=== PATIENT | male | born 1975 | race Caucasian/White ===

== ENCOUNTER 2016-07-05 06:53 | Day surgery (SDC) | payer OTHER ==
[~2016-07-05] VITALS: Ht 175.3 cm; Wt 138.2 kg
[2016-07-05] VITALS (12 sets, daily range): BP systolic 108–144; BP diastolic 52–71; PULSE 76–105; RESP 15–26; Ht 175.3 cm; Wt 138.2 kg
--- NOTE | 2016-07-05 06:47 | HPN ---
Date/Time of Note Date/Time of Note DATE: 07/05/16 TIME: 06:47 Interval H&P Admission Note Pt. seen H&P reviewed: No system changes LAWRENCE PATTERSON MD Jul 05, 2016 06:47
[~2016-07-05 06:53] MED LIST: CEFAZOLIN 2 GM/50 ML (PMX) 50 ML IVPB ONE; DEXAMETHASONE 2 MG TAB PO ONE; GABAPENTIN 300 MG CAP PO ONE; traMADol 50 MG TAB PO ONE
[2016-07-05] MEDS ORDERED: KETOROLAC 30 MG INJ ONE (07:00)
[2016-07-05] MEDS ORDERED: TRAM-40 PO (08:14)
[2016-07-05] MEDS ORDERED: SUCCINYLCHOLINE CHLORIDE 100 MG/5 ML SYG IV ONE (09:02)
[2016-07-05] MEDS ORDERED: PROPOFOL 20 ML ONE ×2 (09:02→09:40)
[2016-07-05] MEDS ORDERED: BUPIVACAINE 0.5% (SDV) 30 ML INJ ONE (09:06)
[2016-07-05] MEDS ORDERED: PHENYLephrine (100 MCG/ML) 5ML SYG ONE (09:07)
[2016-07-05] MEDS ORDERED: BUPIVACAINE 0.5%/EPI (SDV) 30 ML INJ ONE (09:09)
[2016-07-05] MEDS ORDERED: CEFAZOLIN 1 GM INJ ONE (10:15)
[2016-07-05] MEDS ORDERED: DEXAMETHASONE 4 MG/ML 1 ML INJ ONE ×2 (10:19→10:22)
[2016-07-05] MEDS ORDERED: ONDANSETRON 4 MG INJ ONE (10:19)
[2016-07-05] MEDS ORDERED: FAMOTIDINE 20 MG INJ ONE (10:19)
[2016-07-05] MEDS ORDERED: ACETAMINOPHEN 1000MG/100ML IV 100 ML ONE (10:19)
--- NOTE | 2016-07-05 10:49 | PDOCDIS ---
Discharge Instructions DIAGNOSIS Discharge Diagnosis: Medial meniscus tear CONDITION Patient Condition: Good HOME CARE INSTRUCTIONS: Diet Instructions: Regular ACTIVITY: Activity Restrictions: Slowly Increase Activity Keep Limb Elevated Bathing Restrictions: Shower FOLLOW UP/APPOINTMENTS Appointments Two weeks SCHOOL/WORK RELEASE May return to School/Work with: With Restrictions School/Work Release Comment: Crutches for two weeks LAWRENCE PATTERSON MD Jul 05, 2016 10:49
--- NOTE | 2016-07-05 11:17 | OPR ---
DATE OF OPERATION: 07/05/2016 ATTENDING PHYSICIAN: Lawrence Britton MD SIZE CUTTER: Vasile Flores MD PREOPERATIVE DIAGNOSIS: Left knee medial meniscus tear. POSTOPERATIVE DIAGNOSES: 1. Left knee medial meniscus tear. 2. 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 PROCEDURES: 1. Left knee arthroscopic debridement of medial meniscus. 2. Left knee arthroscopic chondroplasty of medial femoral condyle and patellofemoral joint. Director Internal Communications surgeon Vasile Marshall MD, was asked to be present at my request as a result of the signifi cant surgical complexity associated with this procedure, including positioning of the extremity, man ipulation of the arthroscope while the surgeon inserts instrumentation, as well as protection of the neurovascular structures. In my opinion, the assistance offered by a surgical elastic knitter is insuff icient and Dr. Flores should be compensated for his time. PROCEDURE IN DETAIL: Following the administration of general endotracheal anesthesia, the patient w as placed in the supine position. The left lower extremity was then prepped and draped in the usual sterile fashion after infiltration with 20 mL of Marcaine solution. Anterior portals were then crea ryley medially and laterally. Diagnostic arthroscopy revealed grade 3 and 4 chondromalacia in the bandar tral portion of the patella, as well as in the intercondylar notch there were several chondral flaps , with a grade IV area measuring 3 cm from medial to lateral and extending the entirety of the notch . The patella appeared to articulate centrally. The medial joint space was then entered. There was grade IV chondromalacia in the central weightbea ring portion measuring 2 x 2 cm, with diffuse chondromalacia. This area was debrided and a chondrop lasty was completed. The medial meniscus had a degenerative small posterior horn tear. This was de brided down to stable tissue. The ACL was then evaluated, as well as the PCL. It appeared that there was an empty lateral wall, w ith the remaining ACL perhaps partially scarred to the PCL, but there was certainly no lateral attac hment. The lateral joint spaces were then entered and no abnormalities were noted. The lateral meniscus wa s probed and visualized, as well as the articular surfaces, and these appeared normal. The joint was then thoroughly irrigated and closed. The wounds were closed using Steri-Strips. Hardy rile dressing and RYLEY hose were applied. The patient was awakened and transported to recovery in [facility] condition, having tolerated the procedure well. Dictated By: LAWRENCE MOON/CHRIS Conf#: [id number] DID#: [id number]
== END 2016-07-05 12:38 | disposition home or self-care (01) ==
LOC: SDS 06:53
PROVIDERS: ATTEND Orthopaedic Surgery
DX: M23.222 Derangement of posterior horn of medial meniscus due to old tear or injury, left knee (principal); M94.262 Chondromalacia, left knee; E66.01 Morbid (severe) obesity due to excess calories; Z68.42 Body mass index [BMI] 45.0-49.9, adult
CPT/HCPCS: 29881; J0131; J0330; J0690; J1100; J1885; J2405; J2370